=== PATIENT | male | born 1985 | race Caucasian/White ===

== ENCOUNTER 2018-01-24 14:42 | Emergency (ER) | payer BC, OTHER ==
[~2018-01-24] VITALS: Ht 175.3 cm; Wt 86.2 kg
[2018-01-24 15:28] VITALS: BP 116/72
[2018-01-24] MEDS ORDERED: NAPROXEN 500 MG TABLET PO STA (15:28)
[2018-01-24] MEDS ORDERED: CYCLOBENZAPRINE 10 MG TABLET. PO ONE (15:30)
[2018-01-24] MEDS ORDERED: HYDROcodone/APAP 5/325MG 1 TAB TABLET PO ONE (15:30)
[2018-01-24] MEDS ORDERED: predniSONE 20 MG TABLET PO ONE (15:30)
[2018-01-24] MEDS ORDERED: METH4TAB2 PO (15:34)
[2018-01-24] MEDS ORDERED: CYCL10TA2 PO (15:34)
[2018-01-24] MEDS ORDERED: DICL50TA4 PO (15:34)
--- NOTE | 2018-01-24 15:35 | PHYS DOC ---
Past Medical History Past Medical History: No Pertinent History Past Surgical History: No Surgical History, Other Additional Past Surgical Histo: ORAL SURGERY Alcohol Use: Occasionally Drug Use: None Adult General Chief Complaint Chief Complaint: LOWER BACK PAIN OR INJURY HPI HPI Patient is a 32 year old male who presents complaining of 7 out of 10 right low back pain radiating to the right lower extremity that began today while bowling. Patient states he twisted wrong. Denies any fall. Denies any loss of bowel bladder function. States pain is worse on certain movements. Has not tried anything for his pain. Review of Systems Review of Systems Constitutional: Denies fever or chills [] GI: Denies abdominal pain, nausea, vomiting, bloody stools or diarrhea [] : Denies dysuria or hematuria [] Musculoskeletal: Reports right low back pain radiating to the right lower extremity Integument: Denies rash or skin lesions [] Neurologic: Denies headache, focal weakness or sensory changes [] All other systems were reviewed and found to be within normal limits, except as documented in this note. Allergies Allergies Allergies Coded Allergies Type Severity Reaction Last Updated Verified No Known Drug Allergies 10/05/14 No Physical Exam Physical Exam Constitutional: Well developed, well nourished, no acute distress, non-toxic appearance. [] Abdomen: Bowel sounds normal, soft, no tenderness, no masses, no pulsatile masses. [] Skin: Warm, dry, no erythema, no rash. [] Back: No tenderness, no CVA tenderness. [] Extremities: Slight tenderness on palpation of the right SI joint, no midline lumbar spine tenderness, no cyanosis, no clubbing, ROM intact, no edema. [] Neurologic: Alert and oriented X 3, normal motor function, normal sensory function, no focal deficits noted. [] Psychologic: Affect normal, judgement normal, mood normal. [] EKG EKG [] Radiology/Procedures Radiology/Procedures [] Course & Med Decision Making Course & Med Decision Making Pertinent Labs and Imaging studies reviewed. (See chart for details) Patient has lumbosacral strain after twisting wrong during bowling. Has no cauda equina syndrome symptoms. Will be discharged with cyclobenzaprine, Medrol Dosepak and diclofenac. Ice elevation encouraged. Follow-up with PCP in one week. Dragon Disclaimer Dragon Disclaimer This electronic medical record was generated, in whole or in part, using a voice recognition dictation system. Departure Departure Impression: Primary Impression: Acute lumbosacral myofascial strain Disposition: 01 HOME, SELF-CARE Condition: STABLE Referrals: NO PCP (PCP) Follow-up with your own doctor in 1-2 weeks Patient Instructions: Lumbosacral Strain Additional Instructions: You were evaluated in the emergency room for lumbosacral strain. Try to ice and elevate the affected area. Take the prescribed medications as ordered. Follow- up with your own doctor in 1-2 weeks. Scripts Cyclobenzaprine Hcl (CYCLOBENZAPRINE HCL) 10 Mg Tablet 1 TAB PO TID, #30 TAB Prov: SANTIAGO DUARTE APRN 01/24/18 Methylprednisolone (MEDROL) 4 Mg Tab.ds.pk 1 PKG PO UD, #1 PKG Prov: SANTIAGO DUARTE APRN 01/24/18 Diclofenac Sodium (DICLOFENAC SODIUM) 50 Mg Tablet.dr 1 TAB PO BID, #60 TAB 1 Refill Prov: SANTIAGO DUARTE APRN 01/24/18 Problem Qualifiers Primary Impression: Acute lumbosacral myofascial strain Encounter type: initial encounter Qualified Codes: S39.012A - Strain of muscle, fascia and tendon of lower back, initial encounter SANTIAGO DUARTE APRN Jan 24, 2018 15:35
== END 2018-01-24 15:52 | disposition home or self-care (01) ==
LOC: ER 14:42
DX: S39.012A Strain of muscle, fascia and tendon of lower back, initial encounter (principal); M79.604 Pain in right leg; X50.1XXA Overexertion from prolonged static or awkward postures, initial encounter; Y93.89 Activity, other specified; Y92.89 Other specified places as the place of occurrence of the external cause; Y99.8 Other external cause status
CPT/HCPCS: 99284; J7512

== ENCOUNTER 2018-03-17 11:45 | Emergency (ER) | payer BC, OTHER ==
[~2018-03-17] VITALS: Ht 172.7 cm; Wt 86.2 kg
[~2018-03-17 11:45] MED LIST: CYCL10TA2 PO; DICL50TA4 PO; METH4TAB2 PO
[2018-03-17 12:32] VITALS: BP 136/65
--- NOTE | 2018-03-17 13:19 | PHYS DOC ---
Past Medical History Past Medical History: No Pertinent History Past Surgical History: Other Additional Past Surgical Histo: ORAL SURGERY Alcohol Use: Occasionally Drug Use: None Adult General Chief Complaint Chief Complaint: BACK PAIN OR INJURY [facility] HPI Patient is a 33 year old male with no significant medical history who presents today complaining of a throbbing intermittent 4 out of 10 bilateral thoracic pain that began at 10 AM this morning while at work, patient states he was pushing a large reel that holds cables weighing approximately 950 pounds and he felt a pull in his back. Patient states his job requested him to come to the ED to be evaluated. Patient denies any pain radiating to bilateral upper and lower extremities. Denies any numbness or tenderness to bilateral lower extremities or upper extremities. Patient is up ambulating and no difficulties. Review of Systems Review of Systems Constitutional: Denies fever or chills [] Eyes: Denies change in visual acuity, redness, or eye pain [] HENT: Denies nasal congestion or sore throat [] Respiratory: Denies cough or shortness of breath [] Cardiovascular: No additional information not addressed in HPI [] GI: Denies abdominal pain, nausea, vomiting, bloody stools or diarrhea [] : Denies dysuria or hematuria [] Musculoskeletal: Reports mid back pain Integument: Denies rash or skin lesions [] Neurologic: Denies headache, focal weakness or sensory changes [] All other systems were reviewed and found to be within normal limits, except as documented in this note. Allergies Allergies Allergies Coded Allergies Type Severity Reaction Last Updated Verified No Known Drug Allergies 10/05/14 No Physical Exam Physical Exam Constitutional: Well developed, well nourished, no acute distress, non-toxic appearance. [] HENT: Normocephalic, atraumatic, bilateral external ears normal, oropharynx moist, no oral exudates, nose normal. [] Eyes: PERRLA, EOMI, conjunctiva normal, no discharge. [] Neck: Normal range of motion, no tenderness, supple, no stridor. [] Cardiovascular:Heart rate regular rhythm, no murmur [] Lungs & Thorax: Bilateral breath sounds clear to auscultation [] Abdomen: Bowel sounds normal, soft, no tenderness, no masses, no pulsatile masses. [] Skin: Warm, dry, no erythema, no rash. [] Back: No tenderness to bilateral thoracic spine, no midline thoracic spine tenderness, no CVA tenderness. [] Extremities: No tenderness, no cyanosis, no clubbing, ROM intact, no edema. [] Neurologic: Alert and oriented X 3, normal motor function, normal sensory function, no focal deficits noted. [] Psychologic: Affect normal, judgement normal, mood normal. [] Current Patient Data Vital Signs Vital Signs Date Time Temp Pulse Resp B/P (MAP) Pulse Ox O2 Delivery O2 Flow Rate FiO2 03/17/18 12:32 98.1 90 18 136/65 (88) 96 Room Air 98.1 EKG EKG [] Radiology/Procedures Radiology/Procedures [] Course & Med Decision Making Course & Med Decision Making Pertinent Labs and Imaging studies reviewed. (See chart for details) This is a 33-year-old male patient presenting to the ED today with muscle strain to thoracic spine after pushing heavy item at work. Patient has no cauda equina syndrome symptoms. Will be discharged with naproxen, Flexeril and Medrol Dosepak. Provided instructions to follow-up with his own PCP in 1-2 weeks. Provided return precautions and discharged in stable condition. Dragon Disclaimer Dragon Disclaimer This electronic medical record was generated, in whole or in part, using a voice recognition dictation system. Departure Departure Impression: Primary Impression: Strain of muscle and tendon of back wall of thorax, initial encounter Disposition: 01 HOME, SELF-CARE Condition: STABLE Referrals: NO PCP (PCP) follow up with your doctor in one week Patient Instructions: Thoracic Strain, [id number] Additional Instructions: You were evaluated in the emergency room for muscle strain. Take the prescribed medications as ordered. Apply heat to your back. Follow-up with your own doctor or the chiropractor in 1-2 weeks. Come back to the ED at any point symptoms worsen. Scripts Cyclobenzaprine Hcl (CYCLOBENZAPRINE HCL) 10 Mg Tablet 1 TAB PO TID, #30 TAB Prov: MUTUNGA,SANTIAGO CLOTH DYE RANGE OPERATOR 03/17/18 Naproxen (NAPROXEN) 500 Mg Tablet 1 TAB PO BID, #60 TAB 1 Refill Prov: MUTUNGA,SANTIAGO CLOTH DYE RANGE OPERATOR 03/17/18 Methylprednisolone (MEDROL) 4 Mg Tab.ds.pk 1 PKG PO UD, #1 PKG Prov: MUTUNGA,SANTIAGO CLOTH DYE RANGE OPERATOR 03/17/18 SANTIAGO DUARTE APRN Mar 17, 2018 13:19
[2018-03-17] MEDS ORDERED: METH4TAB2 PO (13:29)
[2018-03-17] MEDS ORDERED: NAPR-514 PO (13:29)
[2018-03-17] MEDS ORDERED: CYCL10TA2 PO (13:29)
== END 2018-03-17 13:51 | disposition home or self-care (01) ==
LOC: ER 11:45
DX: S29.012A Strain of muscle and tendon of back wall of thorax, initial encounter (principal); X50.3XXA Overexertion from repetitive movements, initial encounter; Y93.89 Activity, other specified; Y92.79 Other farm location as the place of occurrence of the external cause; Y99.0 Civilian activity done for income or pay
CPT/HCPCS: 99283